=== PATIENT | female | born 1960 | race Two or more races ===

== ENCOUNTER 2021-03-06 10:11 | Emergency (ER) | payer BC, OTHER ==
[~2021-03-06] VITALS: Ht 157.5 cm; Wt 77.4 kg
--- NOTE | 2021-03-06 12:25 | PHYS DOC ---
Past Medical History Past Medical History: Hypertension Past Surgical History: Smoking Status: Never Smoker Alcohol Use: None Drug Use: None General Adult EDM: Chief Complaint: GROIN PAIN HPI: HPI: Patient is a 60 year old female who presents with as of Sunday she started having left lower groin sharp pain that was worse with sitting up and walking or bending over. She states she is also having slight left lower back pain. Patient at this time is laying flat and states that she has no pain. She states that she saw her doctor on Sunday and they put her on Bactrim antibiotic for possible urinary tract infection. She states that she does have a history of hypertension and kidney stones. She denies fever, nausea,, chest pain, shortness of breath vomiting, diarrhea, constipation, abnormal vaginal discharge or bleeding, focal weakness, numbness or tingling, loss of bowel bladder, headache, dizziness. She states that she did start taking the Bactrim on Sunday. Review of Systems: Review of Systems: Constitutional: Denies fever or chills. [] Eyes: Denies change in visual acuity. [] HENT: Denies nasal congestion or sore throat. [] Respiratory: Denies cough or shortness of breath. [] Cardiovascular: Denies chest pain or edema. [] GI: + Left lower groin abdominal pain, denies nausea, vomiting, bloody stools or diarrhea. [] : Denies dysuria. [] Musculoskeletal: +Left lower back pain or denies joint pain. [] Integument: Denies rash. [] Neurologic: Denies headache, focal weakness or sensory changes. [] Endocrine: Denies polyuria or polydipsia. [] Lymphatic: Denies swollen glands. [] Psychiatric: Denies depression or anxiety. [] Heart Score: C/O Chest Pain: No Risk Factors: Risk Factors: DM, Current or recent (<one month) smoker, HTN, HLP, family history of CAD, obesity. Risk Scores: Score 0 - 3: 2.5% MACE over next 6 weeks - Discharge Home Score 4 - 6: 20.3% MACE over next 6 weeks - Admit for Clinical Observation Score 7 - 10: 72.7% MACE over next 6 weeks - Early Invasive Strategies Allergies: Allergies: Allergies Coded Allergies Type Severity Reaction Last Updated Verified No Known Drug Allergies 5/20/15 No Physical Exam: PE: Constitutional: Well developed, well nourished, no acute distress, non-toxic appearance. [] HENT: Normocephalic, atraumatic, bilateral external ears normal, oropharynx moist, no oral exudates, nose normal. [] Eyes: PERRLA, EOMI, conjunctiva normal, no discharge. [] Neck: Normal range of motion, no tenderness, supple, no stridor. [] Cardiovascular:Heart rate regular rhythm, no murmur [] Lungs & Thorax: Bilateral breath sounds clear to auscultation [] Abdomen: Bowel sounds normal, soft, no tenderness, no masses, no pulsatile masses. [] Skin: Warm, dry, no erythema, no rash. [] Back: No tenderness, no CVA tenderness. [] Extremities: No tenderness, no cyanosis, no clubbing, ROM intact, no edema. [] Neurologic: Alert and oriented X 3, normal motor function, normal sensory function, no focal deficits noted. [] Psychologic: Affect normal, judgement normal, mood normal. Normal physical exam [] EKG: EKG: [] Radiology/Procedures: Radiology/Procedures: [] Impression: [facility] [address] [place], [place] [id number] IMAGING REPORT Signed PATIENT: LESLIE VILLAUNT: [id number] : 1960 LOCATION: ER AGE: 60 SEX: F EXAM STATUS: REG ER ORD. PHYSICIAN: KARTHIK BENTLEY APRN REASON: left flank and groin pain, history kidney stone PROCEDURE: CT ABDOMEN PELVIS WO CONTRAST Exam: CT abdomen/pelvis without intravenous contrast Indication: Left flank and groin pain Comparison: CT abdomen pelvis 04/14/2015 Technique: Helical CT imaging performed of the abdomen and pelvis without the use of intravenous contrast. Sagittal and coronal reformats were obtained. One or more of the following individualized dose reduction techniques were utilized for this examination: 1. Automated exposure control 2. Adjustment of the mA and/or kV according to patient size 3. Use of iterative reconstruction technique. Findings: Inherently limited evaluation without intravenous contrast. Lower chest: Normal. Liver: Normal noncontrast appearance of the liver. Gallbladder/Biliary Tree: Normal. Pancreas: Normal. Spleen: Normal. Adrenal Glands: Normal. Kidneys/Ureters/Bladder: Kidneys, ureters, and bladder are normal. No hydronephrosis or nephrolithiasis. Reproductive Organs: Uterus is anteverted. 3 cm right adnexal cyst is unchanged. Stomach, small bowel, and colon: The stomach and small bowel are normal. Colon is normal. Appendix is normal. Vasculature: Abdominal aorta is normal in caliber. There is mild calcified atherosclerosis. Lymph Nodes: No lymphadenopathy. Peritoneum and retroperitoneum: No free fluid or free air. Bones: No acute osseous abnormality. Moderate degenerative disc disease at L5- S1. Impression: 1. No acute abnormality. Specifically, no urolithiasis or hydronephrosis. 2. Unchanged 3 cm right adnexal cyst. Electronically signed by: lAesha Ba MD (03/06/2021 1:04 PM) [id number] DICTATED and SIGNED BY: ALESHA BA MD DATE: 03/06/21 [id number] Course & Med Decision Making: Course & Med Decision Making Pertinent Labs and Imaging studies reviewed. (See chart for details) See HPI. Alert and oriented x4. Ambulatory with a steady gait. Speaks in full clear sentences. No CVA tenderness. Abdomen is soft and nontender. Skin pink warm and dry. Vital signs within normal limits. Afebrile. Blood work is unremarkable. Urinalysis shows some contamination. CT shows no acute findings and also shows a unchanged right ovarian cyst. I think this is likely nerve pain that is stemming from her low back. Patient to take ibuprofen to follow-up with her primary care provider. [] Dragon Disclaimer: Rick Disclaimer: This electronic medical record was generated, in whole or in part, using a voice recognition dictation system. Departure Departure Impression: Primary Impression: Back pain Qualified Codes: M54.42 - Lumbago with sciatica, left side Additional Impression: Groin pain Qualified Codes: R10.32 - Left lower quadrant pain Disposition: 01 DC HOME SELF CARE/HOMELESS Condition: STABLE Referrals: LEXY HANKS MD (PCP) Patient Instructions: Back Pain, Adult, Sciatica with Rehab-Sports[facility] Additional Instructions: Follow-up with primary care provider. Use a heating pad to help with the back pain and into the groin area. Rest. Take ibuprofen for your pain. You can continue the antibiotic. If anything worsens you can always come back. Drink plenty of fluids. Scripts Cyclobenzaprine Hcl (CYCLOBENZAPRINE HCL) 5 Mg Tablet 1 TAB PO TID PRN for PAIN, #21 TAB Prov: KARTHIK BENTLEY APRN 03/06/21 Ibuprofen (IBUPROFEN) 600 Mg Tablet 600 MG PO PRN Q6HRS PRN for INFLAMMATION, #25 TAB Prov: KARTHIK BENTLEY APRN 03/06/21 KARTHIK BENTLEY APRN Mar 06, 2021 12:25
[2021-03-06] MEDS ORDERED: IV NORMAL SALINE 1000ML BAG 1,000 ML IV ONE (12:30)
[2021-03-06 12:38] LABS: BASO % 1 % (0-3); EOS # 0.1 x10^3/uL (0.0-0.7); EOS % 1 % (0-3); HEMATOCRIT 43.9 % (36.0-47.0); HEMOGLOBIN 15.2 g/dL (12.0-15.5); LYMPH % 31 % (24-48); MEAN CORPUSCULAR HEMOGLOBIN 32 pg (25-35); MEAN CORPUSCULAR HGB CONC 35 g/dL (31-37); MEAN CORPUSCULAR VOLUME 91 fL (79-100); MONO # 0.4 x10^3/uL (0.0-1.1); MONO % 7 % (0-9); NEUT # 3.8 x10^3/uL (1.8-7.7); NEUT % 61 % (31-73); PLATELET COUNT 228 x10^3/uL (140-400); RED BLOOD COUNT 4.81 x10^6/uL (3.50-5.40); RED CELL DISTRIBUTION WIDTH 12.4 % (11.5-14.5); WHITE BLOOD COUNT 6.4 x10^3/uL (4.0-11.0)
[2021-03-06 12:39] LABS: BILIRUBIN,URINE NEGATIVE (NEG); CLARITY,URINE CLEAR; COLOR,URINE YELLOW; NITRITE,URINE NEGATIVE (NEG); PROTEIN,URINE NEGATIVE (NEG-TRACE); UROBILINOGEN,URINE 0.2 mg/dL (0.2 mg/dL)
[2021-03-06 12:44] LABS: RBC,URINE 0 /HPF (0-2)
[2021-03-06 12:45] LABS: BACTERIA,URINE FEW /HPF (0-FEW); WBC,URINE OCC /HPF (0-4)
[2021-03-06 12:48] LABS: CALCIUM 9.1 mg/dL (8.5-10.1); CREATININE 0.7 mg/dL (0.6-1.0); GFR 85.6; POTASSIUM 4.4 mmol/L (3.5-5.1)
[2021-03-06 12:56] LABS: ALBUMIN 4.1 g/dL (3.4-5.0); ALBUMIN/GLOBULIN RATIO 1.1 (1.0-1.7); TOTAL BILIRUBIN 0.3 mg/dL (0.2-1.0); TOTAL PROTEIN 7.8 g/dL (6.4-8.2)
--- NOTE | 2021-03-06 13:07 | RAD ---
Exam: CT abdomen/pelvis without intravenous contrast Indication: Left flank and groin pain Comparison: CT abdomen pelvis 04/14/2015 Technique: Helical CT imaging performed of the abdomen and pelvis without the use of intravenous cont rast. Sagittal and coronal reformats were obtained. One or more of the following individualized dose reduction techniques were utilized for this examinat ion: 1. Automated exposure control 2. Adjustment of the mA and/or kV according to patient size 3. Use of iterative reconstruction technique. Findings: Inherently limited evaluation without intravenous contrast. Lower chest: Normal. Liver: Normal noncontrast appearance of the liver. Gallbladder/Biliary Tree: Normal. Pancreas: Normal. Spleen: Normal. Adrenal Glands: Normal. Kidneys/Ureters/Bladder: Kidneys, ureters, and bladder are normal. No hydronephrosis or nephrolithias is. Reproductive Organs: Uterus is anteverted. 3 cm right adnexal cyst is unchanged. Stomach, small bowel, and colon: The stomach and small bowel are normal. Colon is normal. Appendix is normal. Vasculature: Abdominal aorta is normal in caliber. There is mild calcified atherosclerosis. Lymph Nodes: No lymphadenopathy. Peritoneum and retroperitoneum: No free fluid or free air. Bones: No acute osseous abnormality. Moderate degenerative disc disease at L5-S1. Impression: 1. No acute abnormality. Specifically, no urolithiasis or hydronephrosis. 2. Unchanged 3 cm right adnexal cyst. Electronically signed by: Alesha Ba MD (03/06/2021 1:04 PM) [id number]
[2021-03-06] MEDS ORDERED: CYCL5TAB PO (13:20)
[2021-03-06] MEDS ORDERED: IBUP-1007 PO (13:20)
[2021-03-06] MEDS ORDERED: methylPREDNISolone SOD SUCC PF 125 MG/2 ML VIAL. IV ONE (13:30)
[2021-03-06 14:49] VITALS: BP 118/70
== END 2021-03-06 15:13 | disposition home or self-care (01) ==
LOC: ER 10:11
DX: M54.42 Lumbago with sciatica, left side (principal); R10.32 Left lower quadrant pain; I10 Essential (primary) hypertension; Z98.890 Other specified postprocedural states
CPT/HCPCS: 36415; 74176; 80053; 81001; 83690; 85025; 96361; 96374; 99284; J2930; J7030

== ENCOUNTER 2022-02-23 19:39 | Emergency (ER) | payer BC ==
[~2022-02-23] VITALS: Ht 154.9 cm; Wt 77.2 kg
[~2022-02-23 19:39] MED LIST: CYCL5TAB PO; IBUP-1007 PO
--- NOTE | 2022-02-23 20:18 | PHYS DOC ---
Past Medical History Past Medical History: Hypertension Past Surgical History: Smoking Status: Never Smoker Alcohol Use: None Drug Use: None General Adult EDM: Chief Complaint: UPPER EXTREMITY PAIN HPI: HPI: Patient is a 61 year old female past medical history hypertension presents with a chief complaint of left wrist pain. Prior to arrival patient was working in her yard when she slipped and fell on an outstretched left arm. Patient denies hitting her head. Patient complains of pain along her left wrist. Review of Systems: Review of Systems: Constitutional: Denies fever or chills. [] Eyes: Denies change in visual acuity. [] HENT: Denies nasal congestion or sore throat. [] Respiratory: Denies cough or shortness of breath. [] Cardiovascular: Denies chest pain or edema. [] GI: Denies abdominal pain, nausea, vomiting, bloody stools or diarrhea. [] : Denies dysuria. [] Musculoskeletal: Denies back pain or joint pain. [Positive wrist pain] Integument: Denies rash. [] Neurologic: Denies headache, focal weakness or sensory changes. [] Endocrine: Denies polyuria or polydipsia. [] Lymphatic: Denies swollen glands. [] Psychiatric: Denies depression or anxiety. [] Heart Score: C/O Chest Pain: N/A Risk Factors: Risk Factors: DM, Current or recent (<one month) smoker, HTN, HLP, family history of CAD, obesity. Risk Scores: Score 0 - 3: 2.5% MACE over next 6 weeks - Discharge Home Score 4 - 6: 20.3% MACE over next 6 weeks - Admit for Clinical Observation Score 7 - 10: 72.7% MACE over next 6 weeks - Early Invasive Strategies Allergies: Allergies: Allergies Coded Allergies Type Severity Reaction Last Updated Verified No Known Drug Allergies 04/14/15 No Physical Exam: PE: Constitutional: Well developed, well nourished, no acute distress, non-toxic appearance. [] HENT: Normocephalic, atraumatic, bilateral external ears normal, oropharynx moist, no oral exudates, nose normal. [] Eyes: PERRLA, EOMI, conjunctiva normal, no discharge. [] Neck: Normal range of motion, no tenderness, supple, no stridor. [] Cardiovascular:Heart rate regular rhythm, no murmur [] Lungs & Thorax: Bilateral breath sounds clear to auscultation [] Abdomen: Bowel sounds normal, soft, no tenderness, no masses, no pulsatile masses. [] Skin: Warm, dry, no erythema, no rash. [] Back: No tenderness, no CVA tenderness. [] Extremities: No tenderness, no cyanosis, no clubbing, ROM intact, no edema. [] Neurologic: Alert and oriented X 3, normal motor function, normal sensory function, no focal deficits noted. [] Psychologic: Affect normal, judgement normal, mood normal. [] EKG: EKG: [] Radiology/Procedures: Radiology/Procedures: [] Impression: 1. Comminuted fracture of the distal radial metadiaphysis with intra-articular extension to the radiocarpal joint. There is apex volar angulation. 2. There is a mildly displaced fracture of the ulnar styloid process. 3. Carpal bones are intact. Proximal metacarpals are intact. Course & Med Decision Making: Course & Med Decision Making Pertinent Labs and Imaging studies reviewed. (See chart for details) [] Patient was evaluated for chief complaint. Work-up consisted of radiologic imaging. Results reviewed and discussed with patient. Patient with a distal radius and ulnar fracture. Patient treated with hydrocodone for pain. Patient was placed in anterior posterior splint by nursing. The splint was evaluated prior to discharge patient was neurovascularly intact post application. Plan to discharge patient home with hydrocodone. Advised to take Tylenol and Motrin as needed with hydrocodone for breakthrough pain. Advised rest ice elevate. Discussed patient with orthopedics. Patient to call Dr. Shantell Velásquez's office in the a.m. to schedule an appointment. Rick Disclaimer: Rick Disclaimer: This electronic medical record was generated, in whole or in part, using a voice recognition dictation system. Departure Departure Impression: Primary Impression: Wrist fracture, closed Disposition: HOME / SELF CARE / HOMELESS Condition: STABLE Referrals: LEXY HANKS MD (PCP) SHANTELL VELÁSQUEZ MD Patient Instructions: Cast or Splint Care, Wrist Fracture Scripts Hydrocodone/Acetaminophen (Hydrocodone-Acetamin 5-325 mg) 1 Each Tablet 1 EACH PO Q4-6HRS, #20 TAB Prov: GUILHERME GALVAN DO 02/23/22 GUILHERME GALVAN DO Feb 23, 2022 20:18
--- NOTE | 2022-02-23 21:07 | RAD ---
XR LT WRIST 3VIEWS 02/23/2022 8:42 PM INDICATION: Pain, fall COMPARISON: None available. TECHNIQUE: 3 views of the left wrist are provided. FINDINGS/ IMPRESSION: 1. Comminuted fracture of the distal radial metadiaphysis with intra-articular extension to the radio carpal joint. There is apex volar angulation. 2. There is a mildly displaced fracture of the ulnar styloid process. 3. Carpal bones are intact. Proximal metacarpals are intact. Electronically signed by: Deyanira Espinoza MD (02/23/2022 9:05 PM) [id number]
[2022-02-23] MEDS ORDERED: HYDR-2759 PO (21:24)
[2022-02-23] MEDS ORDERED: HYDROcodone/APAP 5/325MG 1 TAB TABLET PO ONE (21:45)
[2022-02-23 22:30] VITALS: BP 136/80
== END 2022-02-23 22:55 | disposition home or self-care (01) ==
LOC: ER 19:39
DX: S52.502A Unspecified fracture of the lower end of left radius, initial encounter for closed fracture (principal); S52.612A Displaced fracture of left ulna styloid process, initial encounter for closed fracture; I10 Essential (primary) hypertension; W01.0XXA Fall on same level from slipping, tripping and stumbling without subsequent striking against object, initial encounter; Y93.89 Activity, other specified; Y92.89 Other specified places as the place of occurrence of the external cause; Y99.8 Other external cause status
CPT/HCPCS: 29125; 73120; 99284; 99285